=== PATIENT | female | born 1990 | race Caucasian/White ===

== ENCOUNTER 2025-03-29 18:25 | Emergency (ER) | payer BC ==
[2025-03-29 19:28] LABS: #Basophils Less than 0.03 10x3/uL (0.0-0.2); #Eosinophils 0.04 10x3/uL (0.0-0.5); #Monocytes 0.49 10x3/uL (0.0-1.1); #Neutrophils 4.12 10x3/uL (1.5-8.4); %Basophils 0.2 % (0.0-2.0); %Eosinophils 0.7 % (0.0-6.0); %Lymphocytes 18.9 % (18.0-47.0); %Monocytes 8.5 % (0.0-10.0); %Neutrophils 71.5 % (40.0-75.0); ALT (SGPT) 10 U/L (Less than 34); AST (SGOT) 17 U/L (11-34); Albumin 3.3 g/dL (3.1-4.5); Alkaline Phosphatase 32 U/L (40-110); Anion Gap 10 mmol/L (10-20); BUN (Urea Nitrogen) 7 mg/dL (7.0-18.7); Bilirubin, Total 0.2 mg/dL (0.3-1.2); Calc. Creatinine Clearance 0 mL/min (70-130); Calcium 8.2 mg/dL (7.8-10.44); Carbon Dioxide 21 mmol/L (22-29); Chloride 109 mmol/L (98-107); Globulin 2.5 g/dL (2.4-3.5); Glucose 90 mg/dL (70-105); Hematocrit 34.3 % (34.9-44.5); Hemoglobin 12.1 g/dL (12.0-15.5); Mean Corpuscular Hemoglobin 30.9 pg (27.0-33.0); Mean Corpuscular Volume 87.5 fL (81.6-98.3); Platelet Count 128 10x3/uL (150-450); Potassium 3.5 mmol/L (3.5-5.1); Red Blood Cell (RBC) Count 3.92 10x6/uL (3.90-5.03); Sodium 136 mmol/L (136-145); White Blood Cell (WBC) Count 5.76 10x3/uL (3.5-10.5)
[2025-03-29 20:57] LABS: Platelet Adequacy Comment Appears Decreased
== END 2025-03-29 20:20 | disposition home or self-care (01) ==
LOC: CSHERS 18:25
DX: O99.512 Diseases of the respiratory system complicating pregnancy, second trimester (principal); O99.612 Diseases of the digestive system complicating pregnancy, second trimester; J11.1 Influenza due to unidentified influenza virus with other respiratory manifestations; R19.7 Diarrhea, unspecified; Z3A.17 17 weeks gestation of pregnancy
CPT/HCPCS: 36415; 80053; 85025